=== PATIENT | female | born 1990 | race Caucasian/White ===

== ENCOUNTER 2018-06-25 09:20 | Inpatient (IN) | payer OTHER ==
[2018-06-25] MEDS ORDERED: CITRIC ACID/SODIUM CITRATE 30 ML UNIT-DOSE CUP PO ONE (09:45)
[2018-06-25] MEDS ORDERED: ELECTROLYTE-148 SOLN 1,000 ML IV SCH ×2 (09:45→10:45)
[2018-06-25 10:33] LABS: BASO % 0.2 % (0-2.0); EOS % 0.6 % (0-4.5); HEMATOCRIT 32.9 % (32.4-45.2); HEMOGLOBIN 11.8 GM/dL (10.7-15.3); LYMPH % 19.2 % (8-40); MCH 32.6 pg (25.7-33.7); MEAN CELL VOLUME 90.6 fl (80-96); MEAN PLT VOLUME 8.8 fl (7.5-11.1); PLATELET COUNT 208 K/MM3 (134-434); RBC 3.63 M/mm3 (3.60-5.2)
[2018-06-25 10:41] VITALS: BMI 22.9
[2018-06-25 10:47] LABS: INR 0.96 (0.83-1.09); PROTHROMBIN TIME (PATIENT) 11.3 SEC (9.7-13.0)
[2018-06-25 10:50] LABS: ACTIVATED PTT 26.4 SECONDS (25.2-36.5)
[2018-06-25 11:01] LABS: ANION GAP 8 MMOL/L (8-16); BLOOD UREA NITROGEN 3 mg/dL (7-18); CALCIUM 8.4 mg/dL (8.5-10.1); CHLORIDE 107 mmol/L (98-107); CO2 21 mmol/L (21-32); CREATININE 0.4 mg/dL (0.55-1.3); GLUCOSE,RANDOM 78 mg/dL (74-106); POTASSIUM 3.8 mmol/L (3.5-5.1); SODIUM 137 mmol/L (136-145)
[2018-06-25] MEDS ORDERED: morphine SULFATE/Preservative Free 0.5 MG/ML (1cc Syringe) ONE (11:18)
[2018-06-25] MEDS ORDERED: ceFAZolin SODIUM 1 GM VIAL ONE (11:18)
[2018-06-25] MEDS ORDERED: OXYTOCIN 20 UNITS in 0.9% NS 20 UNIT/1,000 ML INFUS.BAG IV ONE ×2 (11:25→11:26)
--- NOTE | 2018-06-25 11:37 | HP ---
Past Medical History - Primary Care Physician PCP:: Macrina Bardales - Admission Chief Complaint: 28 Yrs , 36.6 weeks by dates & 36.4 weeks by sono admitted for delivery due to IUGR & oligohydrambios , previous Myomectomy as per recommendations by MFM Dr Gomez. 06/25/2018 us 36.6 weeks,vx, post placenta, lalitha 5.7, EFW <3%tile (4'13"),umblical artery dopplers upper limit of normal, MCA Dopplers suggestive of brain sparing History of Present Illness: pt registered at 29 weeks gestation, . came from [facility] to [facility]. panel O Neg, Rpr nr, Hbsag neg, Rubella immune , Sickle neg , BV neg , ct/gc neg , CF screen neg , Quantiferon neg, Hiv neg Repeat 36weeks tests: h/h -11.4/34.1 plt 210, Gbs neg, gc/ct neg, hiv neg wt gain 43 lbs ante sunitha RHOGAM was given on 05/09/18 in the clinic History Source: Patient, Medical Record Limitations to Obtaining History: No Limitations - Past Medical History [employer]: No: CVA, Seizure Cardiovascular: No: HTN, Murmur Pulmonary: No: Asthma Gastrointestinal: No: Constipation Hepatobiliary: No: Hepatitis B, Hepatitis C Renal/: No: UTI Reproductive: Yes: Fibroids (myomectomy done) ...: 1 ...Para: 0 ...Term: 0 ...: 0 ...Spon : 0 ...Induced : 0 ...Multiple Gestation: 0 ...LMP: 10/10/17 ... Weeks Gestation by Dates: 36.6 ...EDC by Dates: 07/17/18 ...EDC by Sono: 07/19/18 (36.4 weeks by sono ) Heme/Onc: No: Sickle Cell Trait Infectious Disease: No: AIDS, STD's, Tuberculosis Psych: No: Addictions, Anxiety, Bipolar, Depression, Panic, Psychosis, Schizophrenia, Other - Past Surgical History Hx Myomectomy: Yes (06/14/2015 in [facility] & Laproscopy also was done ) Hx Transabdominal Cerclage: No - Smoking History Smoking history: Current every day smoker (5-6/cigrettes daily) Have you smoked in the past 12 months: No - Alcohol/Substance Use Hx Alcohol Use: No History of Substance Use: reports: None Home Medications - Allergies Allergies/Adverse Reactions: Allergies Allergy/AdvReac Type Severity Reaction Status Date / Time No Known Allergies Allergy Verified 06/25/18 09:57 - Home Medications Home Medications: Ambulatory Orders Pnv No.95/Ferrous Fum/Folic AC [ Vitamin Tablet] 1 each PO DAILY Physical Exam - Maternity Vital Signs: Vital Signs Temperature 98.0 F 06/25/18 10:00 Pulse Rate 78 06/25/18 10:00 Respiratory Rate 18 06/25/18 10:00 Blood Pressure 126/71 06/25/18 10:00 O2 Sat by Pulse Oximetry (%) Selected Entries 06/25/18 10:00 Weight 138 lb Constitutional: Yes: Well Nourished Eyes: Yes: WNL HENT: Yes: WNL, Normocephalic Neck: Yes: WNL Cardiovascular: Yes: WNL, Regular Rate and Rhythm Lungs: Clear to auscultation Breast(s): Yes: WNL. No: Mass, Other - Abdominal Exam/OB Fundal Height: 34 Number of Fetuses: Single Presentation: Vertex Contractions: No Heart Rate (range): 125 Heart Rate Location: [facility] Category: I Accelerations: Uniform Decelerations: None - Vaginal Exam/OB Vaginal Bleediing: No Speculum Exam: No Dilatation (cm): close Effacement (%): unefface Amniotic Membrane Status: Intact Presentation: Vertex/Position Station: -4 - Physical Exam Musculoskeletal: Yes: WNL Extremities: Yes: WNL. No: Calf Tenderness Edema: No Integumentary: Yes: Incision (previous pfannensteil scar) Deep Tendon Reflex Grade: Normal +2 ...Motor Strength: WNL Psychiatric: Yes: WNL, Alert, Oriented - Labs Lab Results: CBC, BMP 06/25/18 10:15 06/25/18 10:15 Laboratory Tests 06/25/18 06/25/18 10:15 10:15 PT with INR 11.30 INR 0.96 PTT (Actin FS) 26.4 RPR Titer Nonreactive Laboratory Tests 06/25/18 10:15 Blood Type O NEGATIVE Antibody Screen Pending Hemorrhage Risk Assessment - Risk Factors Medium Risk Factors: Yes: Prior , uterine surgery,or multiple laparotomies (h/o previous myomectomy ) Risk Score: 1 Risk Level: Medium Risk Problem List - Problems (1) with 36 completed weeks gestation Code(s): Z3A.36 - 36 WEEKS GESTATION OF (2) IUGR (intrauterine growth restriction) affecting care of mother Code(s): O36.5990 - MATERN CARE FOR OTH OR SUSP POOR FETL GRTH, UNSP TRI, UNSP Qualifiers: Fetus number: single or unspecified fetus Trimester: third trimester Qualified Code(s): O36.5930 - Maternal care for other known or suspected poor growth, third trimester, not applicable or unspecified (3) with history of uterine myomectomy Code(s): O34.29 - MATERNAL CARE DUE TO UTERINE SCAR FROM OTH PREVIOUS SURGERY (4) Oligohydramnios in ku in third trimester Code(s): O41.03X0 - OLIGOHYDRAMNIOS, THIRD TRIMESTER, NOT APPLICABLE OR UNSP Assessment/Plan 28 yrs 36.6 weeks by dates, 36.4 weeks by sono, IUGR < 3%tile , , Oligohydramnios, GBS neg .O neg s/p AP rhogam Plan : Delivery by primary c/section
[2018-06-25] MEDS ORDERED: PROPOFOL 20 ML ONE (12:45)
[2018-06-25] MEDS ORDERED: PROMETHAZINE HCL 25 MG/1 ML VIAL ONE (12:46)
[2018-06-25 13:00] LABS: ARTERIAL BLD GAS O2 SATURATION 15.2 % (90-98.9); ARTERIAL BLOOD GAS BASE EXCESS 0.6 meq/l (-2-2); ARTERIAL BLOOD GAS PCO2 56.5 mmHg (35-45); ARTERIAL BLOOD GAS PO2 11.3 mmHg (80-100); ARTERIAL BLOOD GAS pH 7.32 (7.35-7.45)
[2018-06-25] MEDS ORDERED: METHYLERGONOVINE MALEATE 0.2 MG/1 ML AMP IM PRN (13:22)
[2018-06-25] MEDS ORDERED: ONDANSETRON 4 MG/2 ML VIAL IVPUSH PRN (13:26)
[2018-06-25] MEDS ORDERED: morphine SULFATE/Preservative Free 0.5 MG/ML (1cc Syringe) SPIN ONE (13:26)
[2018-06-25] MEDS ORDERED: OXYTOCIN 20 UNITS in 0.9% NS 20 UNIT/1,000 ML INFUS.BAG IV SCH (13:30)
--- NOTE | 2018-06-25 13:46 | PN ---
Delivery - Delivery Section: Primary, Low Flap Transverse (Indication : 36.4 wks,IUGR, Oligohydramnios,h/o Myomectomy) Type of Anesthesia: Spinal EBL (cc): 500 (400 ml christos color ) Delivery, Single - Stages of Labor Date of Delivery: 06/25/18 Time of Delivery: 12:22 Time Placenta Delivered: 12:24 Placenta: Yes: Manual Removal, Uterine Exploration - Condition of Manager Local/Telemarketing Representative Present: Yes Name: Drake Dyer Gender: Female Weight: 4 lb 6 oz Position: Right, OT Total Hours ROM (Hrs/Mins): 2 min - 1 Minute Total Score: 9 5 Minutes Total Score: 9 - [place] Feeding Plan Initial Plan: Elected not to breastfeed exclusively throughout hospitalization Remarks - Remarks Remarks: 28 yrs , 36.6 wks by dates, 36.4 wks by sono recommended by [facility] delivery due to IUGR< 3%tile growth, oligohydramnios, h/o myomectomy. pt not in labor GBS neg, O neg, Rhogam given Intrapartum course uneventful
--- NOTE | 2018-06-25 13:58 | OP ---
Operative Note - Note: Operative Date: 06/25/18 Pre-Operative Diagnosis: 36.4 weeks , IUGR, Oligohydranios, h/o myomectomy Operation: Primary LFTC/Section Findings: 12.22 Pm baby girl , 9/9, wt 4'6', ROT position Both tubes & ovaries normal Dr Dyer Cyber Legal Advisor present in the OR Surgeon: Macrina Bardales Ventilation Worker: Bola Banegas Anesthesiologist/ROBOTICS TECHNOLOGIST: Adolfo Tracey Anesthesia: Spinal Specimens Removed: cord segment for cord blood gas. cord blood. placenta Estimated Blood Loss (mls): 500 Drains, Volume Out (mls): 400 (sutton , christos color ) Fluid Volume Replaced (mls): 2,000 (iv ancef 1 gm ivpb given ) Operative Report Dictated: Yes
--- NOTE | 2018-06-25 14:06 | OP ---
DATE OF OPERATION: 06/25/2018 PREOPERATIVE DIAGNOSES: A 36.4 weeks by sonogram, 36.6 weeks by dates, intrauterine growth restriction, oligohydramnios, and history of myomectomy. OPERATION DONE: Primary low flap transverse section. SURGEON: Macrina Bardales MD COATER SLATE: ROB Lowe ANESTHESIOLOGIST: Dr. Tracey ANESTHESIA: Spinal. FINDINGS: This is a 28-year-old 1, para 0, had a sonogram done today and [facility] recommends delivery due to the IUGR less than 3 percentile, and a SAHIL of 5, vertex presentation, patient was not in labor, and she has h/o myomectomy in 2014, cervix was closed. PROCEDURE: Patient was taken to the operating room table, and abdomen was shaved, prepped. Spinal anesthesia was given. Eric catheter was inserted. Abdomen was painted with ChloraPrep and draped in usual manner. Pfannenstiel incision was made through previous scar, skin and subcutaneous tissue, scar tissue. Anterior rectus sheath was incised transversely. Bleeding points were clamped and cauterized. The rectus muscle was from the rectus sheath. Parietal peritoneum was opened vertically. The lower flap by the peritoneum was incised transversely. Lower uterine segment was incised transversely. Amniotic fluid was minimal, and it was clear. Baby was delivered at 12:22 p.m. from the ROT position. Baby girl. Cord was clamped. Cord blood was collected, and also the cord segment was sent for cord blood gases. Dr. Dyer the sports anchor was present in the room. Baby's Apgars were 9/9, and the weight is 4 pounds 6 ounces. The placenta was removed completely with the membranes, and the closure of the uterine incision was done. The uterine incision was closed in 2 layers. First layer was a continuous locking with Biosyn 0 suture. Second layer was a continuous intermittently locking with Biosyn 0 suture. Hemostasis was verified. Then the bladder peritoneum was also closed with Biosyn 0 suture. Both tubes and ovaries were normal. Tubes and ovaries were normal. There were some flimsy adhesions on the left side. Irrigation was done. Then the closure of the abdomen was done. Sponge, instrument, and needle count was correct. Parietal peritoneum was closed with Vicryl 0 suture. Muscles were approximated together with Vicryl 0 interrupted suture were taken. Anterior rectus sheath was closed with a Vicryl 0 continuous sutures were taken. Skin was mobilized from underneath scar. Subcutaneous tissue was approximated with interrupted Vicryl 0 sutures, and the skin was approximated with ani. Patient tolerated the procedure well. She was transferred to the recovery room in stable condition. Estimated blood loss was 500 mL, and she received IV Ancef 1 g prior to the incision, and urine output was 400 mL christos colored. Omid [id number] MTDD
[2018-06-25] MEDS: CEFAZOLIN 1 GM/D5W 1 GM/50 ML BAG IVPB SCH (18:03)
[2018-06-25] MEDS: IBUPROFEN 800 MG/8 ML IJ IVPB PRN (21:15)
[2018-06-26] MEDS: CEFAZOLIN 1 GM/D5W 1 GM/50 ML BAG IVPB SCH ×2 (01:53→09:21)
[2018-06-26] MEDS: IBUPROFEN 800 MG/8 ML IJ IVPB PRN (06:23)
[2018-06-26] MEDS ORDERED: HYDROmorphone HCl 2 MG/ML VIAL IVPB PRN (08:34)
--- NOTE | 2018-06-26 08:34 | PN ---
Progress Note (short form) - Note Progress Note: Post op day#1.S/P C Section under spinal anesthesia with duramorph uneventful.Patient stable and c/o pain score of 7-8/10.So will put patient on Dilaudid prn.No any anesthesia related problem.Patient DC from the anesthesia care.
[2018-06-26] MEDS: IBUPROFEN 600 MG TABLET (FP) PO PRN ×4 (08:36→20:11)
[2018-06-26] MEDS: oxyCODONE HCL 5 MG TABLET PO PRN ×4 (08:37→20:10)
[2018-06-26] MEDS: SIMETHICONE 80 MG TAB.CHEW (FP) PO PRN ×4 (08:38→20:10)
[2018-06-26 08:48] LABS: BASO % 0.2 % (0-2.0); EOS % 0.3 % (0-4.5); HEMATOCRIT 29.5 % (32.4-45.2); HEMOGLOBIN 9.5 GM/dL (10.7-15.3); LYMPH % 16.8 % (8-40); MCH 30.3 pg (25.7-33.7); MCHC 32.2 g/dl (32.0-36.0); MEAN PLT VOLUME 8.9 fl (7.5-11.1); MONO % 5.1 % (3.8-10.2); NEUT % 77.6 % (42.8-82.8); PLATELET COUNT 167 K/MM3 (134-434); RBC 3.13 M/mm3 (3.60-5.2); RDW 13.1 % (11.6-15.6); WHITE BLOOD COUNT 15.8 K/mm3 (4.0-10.0)
--- NOTE | 2018-06-26 09:08 | PN ---
Progress Note (short form) - Note Progress Note: pod 1 s/p c/s , has mild low abdominal cramps CBC, BMP 06/25/18 10:15 Last Vital Signs Temp Pulse Resp BP Pulse Ox 98.2 F 74 20 112/63 99 06/26/18 06:00 06/26/18 06:00 06/26/18 06:00 06/26/18 06:00 06/25/18 14:40 abdomen soft, no distension, BS present incision dry, claen plan ambulate, advance diet pain management cbc
[2018-06-26] MEDS: ENOXAPARIN NA (PORCINE) 40 MG/0.4 ML DISP.SYRIN SQ SCH (09:21)
[2018-06-26] MEDS: PRENATAL VITAMINS W/ FOLIC ACID TABLET (FP) PO SCH (09:22)
[2018-06-26] MEDS ORDERED: FLU VACCINE QUAD 60 MCG/0.5 ML (MDV 18-19) IM ONE (10:00)
[2018-06-26] MEDS ORDERED: DIPHTH,PERTUSS(ACELL),TET 0.5 ML DISP.SYRIN IM ONE (10:00)
[2018-06-26] MEDS ORDERED: BISACODYL 10 MG SUPP.RECT RC PRN (13:22)
[2018-06-26] MEDS: SENNOSIDES/DOCUSATE COMBO (SENNA PLUS) TABLET (UD) PO PRN (20:10)
[2018-06-26] MEDS: FERROUS SO4 325 MG TABLET (FP) PO SCH (21:48)
[2018-06-27] MEDS: oxyCODONE HCL 5 MG TABLET PO PRN ×4 (02:04→21:29)
[2018-06-27] MEDS: IBUPROFEN 600 MG TABLET (FP) PO PRN ×4 (02:05→21:29)
[2018-06-27] MEDS: PRENATAL VITAMINS W/ FOLIC ACID TABLET (FP) PO SCH (09:10)
[2018-06-27] MEDS: SIMETHICONE 80 MG TAB.CHEW (FP) PO PRN (09:10)
[2018-06-27] MEDS: FERROUS SO4 325 MG TABLET (FP) PO SCH ×2 (09:11→21:29)
[2018-06-27] MEDS: ENOXAPARIN NA (PORCINE) 40 MG/0.4 ML DISP.SYRIN SQ SCH (09:16)
--- NOTE | 2018-06-27 11:50 | PN ---
Post Progress Note Type of Delivery: Primary C/S Vital Signs: Vital Signs Temperature 98.4 F 06/26/18 22:00 Pulse Rate 88 06/26/18 22:00 Respiratory Rate 18 06/26/18 22:00 Blood Pressure 122/67 06/26/18 22:00 O2 Sat by Pulse Oximetry (%) 99 06/25/18 14:40 Uterus: Yes: Fundus Firm Incision: Yes: Dressing dry and intact Abdomen/GI: Yes: Abdomen soft Lochia: Yes: Rubra Lochia, amount: Small Extremities: Yes: Calves non-tender Activity: Ambulating - Labs Labs: CBC WBC 15.8 K/mm3 (4.0-10.0) H 06/26/18 06:45 RBC 3.13 M/mm3 (3.60-5.2) L 06/26/18 06:45 Hgb 9.5 GM/dL (10.7-15.3) L 06/26/18 06:45 Hct 29.5 % (32.4-45.2) L 06/26/18 06:45 MCV 94.0 fl (80-96) 06/26/18 06:45 MCH 30.3 pg (25.7-33.7) 06/26/18 06:45 MCHC 32.2 g/dl (32.0-36.0) 06/26/18 06:45 RDW 13.1 % (11.6-15.6) 06/26/18 06:45 Plt Count 167 K/MM3 (134-434) 06/26/18 06:45 MPV 8.9 fl (7.5-11.1) 06/26/18 06:45 Absolute Neuts (auto) 12.3 K/mm3 (1.5-8.0) H 06/26/18 06:45 Neutrophils % 77.6 % (42.8-82.8) 06/26/18 06:45 Lymphocytes % 16.8 % (8-40) 06/26/18 06:45 Monocytes % 5.1 % (3.8-10.2) 06/26/18 06:45 Eosinophils % 0.3 % (0-4.5) 06/26/18 06:45 Basophils % 0.2 % (0-2.0) 12/21/18 06:45 Nucleated RBC % 0 % (0-0) 06/26/18 06:45 Assessment/Plan 28yo s/p PLTCS, POD#2 Routine PP care OOB, ambulate Labs reviewed D/c to home by POD#4 Sharon Gonzales MD
[2018-06-27] MEDS: ACETAMINOPHEN 325 MG TABLET (FP) PO PRN (21:29)
[2018-06-28] MEDS: ACETAMINOPHEN 325 MG TABLET (FP) PO PRN ×2 (02:00→21:35)
[2018-06-28] MEDS: oxyCODONE HCL 5 MG TABLET PO PRN ×4 (02:02→21:35)
[2018-06-28] MEDS: IBUPROFEN 600 MG TABLET (FP) PO PRN ×3 (02:05→17:13)
[2018-06-28] MEDS: SENNOSIDES/DOCUSATE COMBO (SENNA PLUS) TABLET (UD) PO PRN (02:10)
[2018-06-28] MEDS: SIMETHICONE 80 MG TAB.CHEW (FP) PO PRN ×4 (02:14→21:35)
[2018-06-28 07:18] LABS: BASO % 0.6 % (0-2.0); EOS % 1.3 % (0-4.5); HEMATOCRIT 28.1 % (32.4-45.2); HEMOGLOBIN 9.6 GM/dL (10.7-15.3); LYMPH % 20.2 % (8-40); MCH 31.6 pg (25.7-33.7); MCHC 34.2 g/dl (32.0-36.0); MEAN CELL VOLUME 92.5 fl (80-96); MEAN PLT VOLUME 7.8 fl (7.5-11.1); MONO % 9.4 % (3.8-10.2); NEUT % 68.5 % (42.8-82.8); PLATELET COUNT 185 K/MM3 (134-434); RBC 3.04 M/mm3 (3.60-5.2); RDW 12.7 % (11.6-15.6); WHITE BLOOD COUNT 6.5 K/mm3 (4.0-10.0)
[2018-06-28] MEDS: ENOXAPARIN NA (PORCINE) 40 MG/0.4 ML DISP.SYRIN SQ SCH (10:41)
[2018-06-28] MEDS: PRENATAL VITAMINS W/ FOLIC ACID TABLET (FP) PO SCH (10:41)
[2018-06-28] MEDS: FERROUS SO4 325 MG TABLET (FP) PO SCH ×2 (10:41→21:35)
--- NOTE | 2018-06-28 11:59 | PN ---
Post Progress Note Type of Delivery: Primary C/S Vital Signs: Vital Signs Temperature 98.2 F 06/28/18 02:00 Pulse Rate 78 06/28/18 02:00 Respiratory Rate 20 06/28/18 02:00 Blood Pressure 135/65 06/28/18 02:00 O2 Sat by Pulse Oximetry (%) 99 06/25/18 14:40 Breast Exam: Yes: Soft Uterus: Yes: Fundus below umbilicus Incision: Yes: Dressing dry and intact Abdomen/GI: Yes: Abdomen soft Lochia: Yes: Rubra Lochia, amount: Small Extremities: Yes: Calves non-tender Activity: Ambulating - Labs Labs: CBC WBC 6.5 K/mm3 (4.0-10.0) 06/28/18 07:04 RBC 3.04 M/mm3 (3.60-5.2) L 06/28/18 07:04 Hgb 9.6 GM/dL (10.7-15.3) L 06/28/18 07:04 Hct 28.1 % (32.4-45.2) L 06/28/18 07:04 MCV 92.5 fl (80-96) 06/28/18 07:04 MCH 31.6 pg (25.7-33.7) 06/28/18 07:04 MCHC 34.2 g/dl (32.0-36.0) 06/28/18 07:04 RDW 12.7 % (11.6-15.6) 06/28/18 07:04 Plt Count 185 K/MM3 (134-434) 06/28/18 07:04 MPV 7.8 fl (7.5-11.1) D 06/28/18 07:04 Absolute Neuts (auto) 4.4 K/mm3 (1.5-8.0) 06/28/18 07:04 Neutrophils % 68.5 % (42.8-82.8) 06/28/18 07:04 Lymphocytes % 20.2 % (8-40) D 06/28/18 07:04 Monocytes % 9.4 % (3.8-10.2) D 06/28/18 07:04 Eosinophils % 1.3 % (0-4.5) D 06/28/18 07:04 Basophils % 0.6 % (0-2.0) 06/28/18 07:04 Nucleated RBC % 0 % (0-0) 06/28/18 07:04 Assessment/Plan 28yo s/p PLTCS, POD#3 Routine PP care OOB, ambulate Labs reviewed D/c to home by POD#4 Sharon Gonzales MD
--- NOTE | 2018-06-29 07:33 | DS ---
Physical Examination Vital Signs: Vital Signs Temperature 98.3 F 06/28/18 21:00 Pulse Rate 85 06/28/18 21:00 Respiratory Rate 20 06/28/18 21:00 Blood Pressure 128/77 06/28/18 21:00 O2 Sat by Pulse Oximetry (%) 99 06/25/18 14:40 Constitutional: Yes: Well Nourished, No Distress, Calm Respiratory: Yes: WNL, Regular, CTA Bilaterally Gastrointestinal: Yes: WNL, Normal Bowel Sounds Edema: No Integumentary: Yes: WNL Wound/Incision: No: Clean/Dry, Well Approximated, Sutures Intact, [place] Intact , Steri Strips, Open to air, Dressing Dry and Intact, Dressing Removed, Ani Removed, Sutures Removed, Draining, Reddened, Bleeding, Excoriated, Unapproximated, Other Labs: CBC, BMP 06/28/18 07:04 06/25/18 10:15 Discharge Summary Reason For Visit: Current Active Problems Delivery by emergency section (Acute) IUGR (intrauterine growth restriction) affecting care of mother (Acute) Oligohydramnios in ku in third trimester (Acute) with 36 completed weeks gestation (Acute) with history of uterine myomectomy (Acute) Hospital Course: Patient presented for [facility] given history of concerning testing, history of myomectomy Her procedure was uncomplicated She met all postoperative milestones She was discharged home on POD#4 in stable condition Condition: Stable - Instructions Diet, Activity, Other Instructions: Post Instructions DIET: Continue good diet high in protein, calcium, and iron rich foods. Drink at least eight (8) glasses of water daily in addition to other fluids. ___ Regular diet MEDICATIONS: Continue vitamins and iron as previously directed. Motrin and Tylenol may be taken for minor discomfort. ACTIVITY: Mild to moderate exercise may be started in two (2) weeks. Take frequent rest periods. Resume normal activity after six (6) week check up. WOUND CARE OF OPERATIVE SITE: Continue use of perineal bottle until vaginal discharge stops. Keep area clean. Shower daily. Keep abdominal wound dry. Report any drainage or redness to physician. Tub baths, tampons and douches are not permitted for [address] Breast feeding & or Bottle feeding BREAST CARE: (For those that are not ): If engorgement occurs: Wear tight fitting bra. Take Tylenol or Motrin for pain. Apply cold packs (ice in bags to each breast ) FAMILY PLANNING: There are many control alternatives to pursue and they should be discussed at your first office visit. You may resume sexual activity after your six (6) week check up. (Remember, is not a contraceptive) NEXT PHYSICIAN APPOINTMENT: Be certain to call for a one (1 week ) appointment, unless otherwise directed. wound check Call Clinic or got to Emergency Dept if you have any of the following: Heavy vaginal bleeding Painful urination Leg pain Unusual odor noted to vaginal bleeding High fever Red streaking noted on breast Referrals: Macrina Bardales MD [Staff Physician] - Disposition: HOME - Home Medications Comprehensive Discharge Medication List: Ambulatory Orders Pnv No.95/Ferrous Fum/Folic AC [ Vitamin Tablet] 1 each PO DAILY Acetaminophen [Tylenol .Regular Strength -] 500 mg PO Q4H PRN #30 tablet Ferrous Sulfate [Feosol] 325 mg PO BID #90 tab 06/27/18 Ibuprofen [Motrin -] 600 mg PO Q4H PRN #30 tablet 06/27/18 Vitamins (Sjr) - 1 tab PO DAILY #30 tablet 06/27/18
[2018-06-29 08:51] VITALS: BP 127/77; PULSE 94; TEMP 98.9
[2018-06-29] MEDS: FERROUS SO4 325 MG TABLET (FP) PO SCH (09:25)
[2018-06-29] MEDS: SIMETHICONE 80 MG TAB.CHEW (FP) PO PRN (09:25)
[2018-06-29] MEDS: ENOXAPARIN NA (PORCINE) 40 MG/0.4 ML DISP.SYRIN SQ SCH (09:25)
[2018-06-29] MEDS: IBUPROFEN 600 MG TABLET (FP) PO PRN (09:25)
[2018-06-29] MEDS: PRENATAL VITAMINS W/ FOLIC ACID TABLET (FP) PO SCH (09:25)
[2018-06-29] MEDS: ACETAMINOPHEN 325 MG TABLET (FP) PO PRN (09:27)
[2018-07-01 15:03] LABS: VENOUS PC02 44.1 mmHg (38-52); VENOUS PH 7.38 (7.32-7.42)
[2018-07-01 15:04] LABS: VENOUS PO2 23.1 mmHg (28-48)
--- NOTE | 2018-07-01 18:36 | PATH ---
Surgical Pathology Report Patient Name: SVETA MACIAS [facility]. Rec. 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 Specimen(s) Received PLACENTA Clinical History , 36.6 weeks gestation, oligohydramnios SGA, poor Doppler studies, previous myomectomy Final Diagnosis PLACENTA: THIRD TRIMESTER PLACENTA. TRIVASCULAR CORD. MEMBRANES WITH NO DIAGNOSTIC ABNORMALITIES. Electronically Signed Faustino Meza M.D. Gross Description The specimen is received fresh labeled placenta and is a 418 gram, 19.0 x 14.5 x 2.3 cm. placenta with attached membranes and umbilical cord. The attached membranes are sanchez, translucent with focal opacities and insert marginally. The umbilical cord measures 7 cm. in length and averages 0.8 cm. in diameter. The cord inserts eccentrically, 2 cm. to the nearest margin. No true knots or strictures are identified. Cut surface of the umbilical cord reveals 3 vessels. The surface is connor-blue with minimal fibrin deposition and appropriate caliber vessels. The maternal surface is red-brown with focal defects. Sectioning reveals red-brown, spongy parenchyma. No lesions are identified. Internist Medical Doctor Md sections are submitted in three cassettes as follows: 1- membrane rolls and umbilical cord; 2-3- full thickness sections of placenta. 06/26/2018 [facility]06/26/2018
== END 2018-06-29 11:40 | disposition home or self-care (01) | DRG 540 ==
LOC: JDEL 09:20 → JLDR 09:45 → J3W 15:20
PROVIDERS: ADMIT Obstetrics & Gynecology; ATTEND Obstetrics & Gynecology
PROC: 10D00Z1 Extraction of Products of Conception, Low, Open Approach (ICD-10-PCS; principal; 2018-06-25)
PROC: 3E0334Z Introduction of Serum, Toxoid and Vaccine into Peripheral Vein, Percutaneous Approach (ICD-10-PCS; 2018-06-26)
DX: O60.14X0 Preterm labor third trimester with preterm delivery third trimester, not applicable or unspecified (principal); O36.5930 Maternal care for other known or suspected poor fetal growth, third trimester, not applicable or unspecified; O41.03X0 Oligohydramnios, third trimester, not applicable or unspecified; Z3A.36 36 weeks gestation of pregnancy; Z29.13 Encounter for prophylactic Rho(D) immune globulin; Z37.0 Single live birth
CPT/HCPCS: 36415; 36600; 80048; 82803; 85025; 85461; 85610; 85730; 86593; 86850; 86870; 86900; 86901; 86902; 86999; 88307-TC; 90686; 90715; G0008

== ENCOUNTER 2018-07-01 00:41 | Emergency (ER) | payer OTHER ==
[2018-07-01 02:06] VITALS: BP 120/66; PULSE 53; TEMP 97.9; BMI 22.9
--- NOTE | 2018-07-01 02:15 | PDOC ---
History of Present Illness - General Chief Complaint: Nausea/Vomiting Stated Complaint: VOMITING Time Seen by Provider: 07/01/18 01:57 - History of Present Illness Initial Comments: 07/01/18 04:57 Patient is a 28-year-old female status post 1 week ago, who presents to the emergency department for nausea vomiting abdominal pain and hemoptysis. Patient states that she saw streaks of pink blood after vomiting today. She states that she's been vomiting for one day and has lower abdominal pain. Denies fevers, chills, back pain, diarrhea, constipation, urinary symptoms, vaginal bleeding. She states she's been taking Tylenol and Motrin at home with little relief of her symptoms. Past History - Travel Traveled outside of the country in the last 30 days: No Close contact w/someone who was outside of country & ill: No - Past Medical History Allergies/Adverse Reactions: Allergies Allergy/AdvReac Type Severity Reaction Status Date / Time No Known Allergies Allergy Verified 07/01/18 02:05 Home Medications: Ambulatory Orders Pnv No.95/Ferrous Fum/Folic AC [ Vitamin Tablet] 1 each PO DAILY Acetaminophen [Tylenol .Regular Strength -] 500 mg PO Q4H PRN #30 tablet Ferrous Sulfate [Feosol] 325 mg PO BID #90 tab 06/27/18 Ibuprofen [Motrin -] 600 mg PO Q4H PRN #30 tablet 06/27/18 Vitamins (Sjr) - 1 tab PO DAILY #30 tablet 06/27/18 Cephalexin Monohydrate [Keflex -] 500 mg PO BID #14 capsule 07/01/18 Ondansetron [Zofran Odt -] 4 mg SL TID #10 od.tablet 07/01/18 Phenazopyridine HCl [Pyridium -] 100 mg PO TID #10 tablet 07/01/18 Asthma: No Cancer: No Cardiac Disorders: No Diabetes: No HTN: No Seizures: No Thyroid Disease: No - Suicide/Smoking/Psychosocial Hx Smoking History: Never smoked Have you smoked in the past 12 months: No Information on smoking cessation initiated: No Hx Alcohol Use: No Drug/Substance Use Hx: No Hx Substance Use Treatment: No Review of Systems - Review of Systems Able to Perform ROS?: Yes Comments:: 07/01/18 04:57 CONSTITUTIONAL: Absent: fever, chills, diaphoresis, generalized weakness, malaise, loss of appetite HEENT: Absent: rhinorrhea, nasal congestion, throat pain, throat swelling, difficulty swallowing, mouth swelling, ear pain, eye pain, visual Changes CARDIOVASCULAR: Absent: chest pain, loss of consciousness, palpitations, irregular heart rate, peripheral edema RESPIRATORY: Absent: cough, shortness of breath, dyspnea with exertion, orthopnea, wheezing, stridor, hemoptysis GASTROINTESTINAL: Present: abdominal pain, nausea, vomiting, hemoptysis Absent: abdominal distension, diarrhea, constipation, melena, hematochezia GENITOURINARY: Absent: dysuria, frequency, urgency, hesitancy, hematuria, flank pain, genital pain MUSCULOSKELETAL: Absent: myalgia, arthralgia, joint swelling SKIN: Absent: rash, itching, pallor HEMATOLOGIC/IMMUNOLOGIC: Absent: easy bleeding, easy bruising, lymphadenopathy, frequent infections ENDOCRINE: Absent: unexplained weight gain, unexplained weight loss, heat intolerance, cold intolerance NEUROLOGIC: Absent: headache, focal weakness or paresthesias, dizziness, unsteady gait, seizure, mental status changes, bladder or bowel incontinence PSYCHIATRIC: Absent: anxiety, depression, suicidal or homicidal ideation, hallucinations. Is the patient limited Georgian proficient: No *Physical Exam - Vital Signs Last Vital Signs Temp Pulse Resp BP Pulse Ox 97.9 F 53 L 15 120/66 99 07/01/18 00:41 07/01/18 00:41 07/01/18 00:41 07/01/18 00:41 07/01/18 00:41 - Physical Exam Comments: 07/01/18 04:58 GENERAL: Well developed, well nourished. Awake and alert. No acute distress. HEENT: Normocephalic, atraumatic. PERRLA, EOMI. No conjunctival pallor. Sclera are non- icteric. Moist mucous membranes. Oropharynx is clear. NECK: Supple. Full ROM. No JVD. Carotid pulses 2+ and symmetric, without bruits. No thyromegaly. No lymphadenopathy. CARDIOVASCULAR: Regular rate and rhythm. No murmurs, rubs, or gallops. Distal pulses are 2+ and symmetric. PULMONARY: No evidence of respiratory distress. Lungs clear to auscultation bilaterally. No wheezing, rales or rhonchi. ABDOMINAL: TTP of the LLQ, RLQ, suprapubic area. Soft. Non-distended. No rebound or guarding. No organomegaly. Normoactive bowel sounds. MUSCULOSKELETAL Normal range of motion at all joints. No bony deformities or tenderness. No CVA tenderness. EXTREMITIES: No cyanosis. No clubbing. No edema. No calf tenderness. SKIN: scar is well healed with no evidence of cellulitis, or purulent drainage. Warm and dry. Normal capillary refill. No rashes. No jaundice. NEUROLOGICAL: Alert, awake, appropriate. Cranial nerves 2-12 intact. No deficits to light touch and temperature in face, upper extremities and lower extremities. No motor deficits in the in face, upper extremities and lower extremities. Normoreflexic in the upper and lower extremities. Normal speech. Toes are down- going bilaterally. Gait is normal without ataxia. PSYCHIATRIC: Cooperative. Good eye contact. Appropriate mood and affect. Moderate Sedation - Procedure Monitoring Vital Signs: Procedure Monitoring Vital Signs Temperature 97.9 F 07/01/18 00:41 Pulse Rate 53 L 07/01/18 00:41 Respiratory Rate 15 07/01/18 00:41 Blood Pressure 120/66 07/01/18 00:41 O2 Sat by Pulse Oximetry (%) 99 07/01/18 00:41 ED Treatment Course - LABORATORY CBC & Chemistry Diagram: 07/01/18 02:00 07/01/18 02:00 Medical Decision Making - Medical Decision Making 07/01/18 06:59 Patient is a 28-year-old female , one week status post , who presents to the emergency department today with 1 day of nausea, vomiting, lower abdominal pain and hemoptysis. On exam patient with left lower quadrant, right lower quadrant and suprapubic tenderness. Patient also states she had some brief hemoptysis today. scar appears intact with no infection. However given hemoptysis cannot rule out dehiscence internally, as patient had increased intrathoracic pressure while vomiting. Lab work and urine obtained. No leukocytosis. Electrolytes WNL. CT with contrast obtained. No internal bleeding noted. Uterus appears intact. No other acute pathology. Explained to patient that she cannot breast-feed after receiving a CT with contrast for 24 hours. Urine shows positive leukocytes and nitrite. We'll treat with Keflex. Given negative CT scan pain and vomiting most likely due to a UTI. We'll treat as an outpatient and have patient follow up with OB. Given patient placed on antibiotics also recommended not breast-feeding until antibiotics are finished. Patient understands the need to feed the baby with formula until she finishes her antibiotics. Hemoptysis most likely a small Cindy Matute tear. Patient did not vomit while in the emergency department. Tolerating by mouth. Discharge home. I discussed the physical exam findings, ancillary test results and final diagnoses with the patient. I answered all of the patient's questions. The patient was satisfied with the care received and felt comfortable with the discharge plan and treatment plan. The Patient agrees to follow up with the primary care physician/specialist within 24-72 hours. Return precautions were given. *DC/Admit/Observation/Transfer Diagnosis at time of Disposition: UTI (urinary tract infection) Qualifiers: Urinary tract infection type: acute cystitis Hematuria presence: with hematuria Qualified Code(s): N30.01 - Acute cystitis with hematuria - Discharge Dispostion Disposition: HOME Condition at time of disposition: Fair Decision to Admit order: No - Prescriptions Prescriptions: Cephalexin Monohydrate [Keflex -] 500 mg PO BID #14 capsule Ondansetron [Zofran Odt -] 4 mg SL TID #10 od.tablet Phenazopyridine HCl [Pyridium -] 100 mg PO TID #10 tablet - Referrals Referrals: Sharon Gonzales MD [Staff Physician] - Randolph Aragon MD [Staff Physician] - - Patient Instructions Printed Discharge Instructions: DI for Urinary Tract Infection (UTI) Additional Instructions: You have a urinary tract infection. This caused by bacteria. You CT scan was normal today. Please drink plenty of fluids. Take your antibiotics as prescribed. Finish the entire dose even if you feel better. Do not breast feed while on the antibiotics. You may pump your breast milk to prevent breast tenderness. Throw the milk away after pumping. You may take zofran every 8 hours as needed for vomiting/nausea. You may take pyridum as needed for pain. Take this medication with food. You may take Tylenol or Motrin as needed for pain Please follow up with your primary care doctor this week. Return to the emergency department if you have fevers, chills, nausea, vomiting , back pain, or have any changes in your symptoms. Camilla dior infeksion t traktit urinar. Kjo shkaktohet saeid bakteret. Ju CT scan ishte normale sot. Ju lutemi t pini cristy lngje. Merrini antibiotikt tuaj si t prshkruara. Mbaro t gjith dozn edhe nse ndihesh m otilia. Mos ushqeni gji ndrsa miko n antibiotik. Ju mund t pomponi qumshtin e gjirit pr t parandaluar ndjeshmrin e gjirit. Hidhni qumshtin larg pas pompimit. Ju mund t merrni zofran do 8 or sipas nevojs pr t vjella / przierje. Ju mund t merrni piridumin sipas nevojs pr dhimbje. Merreni kt anitra me ushqim. Ju mund t merrni Tylenol ose Motrin si t nevojshme pr dhimbje Ju lutemi t ndiqni me mjekun tuaj t kujdesit parsor kt stevie. Kthehuni n departamentin e urgjencs nse otis ethe, dridhura, nauze, vjellje, dhimbje prapa ose otis ndonj ndryshim n simptomat tuaja. - Post Discharge Activity
[2018-07-01] MEDS ORDERED: FAMOTIDINE 20 MG/50 ML IVPB 20 MG/50 ML MG IVPB ONE ×2 (02:16→02:23)
[2018-07-01] MEDS ORDERED: ACETAMINOPHEN 1000 MG/100 ML VIAL (NON FORMULARY) IVPB ONE (02:16)
[2018-07-01] MEDS ORDERED: ONDANSETRON 4 MG/2 ML VIAL IVPUSH ONE (02:16)
[2018-07-01] MEDS ORDERED: SODIUM CHLORIDE 1,000 ML IV STA (02:16)
--- NOTE | 2018-07-01 02:19 | PDOC ---
*Physical Exam - Vital Signs Last Vital Signs Temp Pulse Resp BP Pulse Ox 97.9 F 53 L 15 120/66 99 07/01/18 00:41 07/01/18 00:41 07/01/18 00:41 07/01/18 00:41 07/01/18 00:41 ED Treatment Course - LABORATORY CBC & Chemistry Diagram: 07/01/18 02:00 07/01/18 02:00 Medical Decision Making - Medical Decision Making 07/01/18 02:18 Pt seen by the Advanced Practice Provider under my direct supervision Ancillary studies reviewed I agree with plan as outlined by the Advanced Practice Provider ROB Harry *DC/Admit/Observation/Transfer Diagnosis at time of Disposition: UTI (urinary tract infection) - Discharge Dispostion Disposition: HOME Condition at time of disposition: Fair - Prescriptions Prescriptions: Cephalexin Monohydrate [Keflex -] 500 mg PO BID #14 capsule Ondansetron [Zofran Odt -] 4 mg SL TID #10 od.tablet Phenazopyridine HCl [Pyridium -] 100 mg PO TID #10 tablet - Referrals Referrals: Randolph Aragon MD [Staff Physician] - Sharon Gonzales MD [Staff Physician] - - Patient Instructions Printed Discharge Instructions: DI for Urinary Tract Infection (UTI) Additional Instructions: You have a urinary tract infection. This caused by bacteria. You CT scan was normal today. Please drink plenty of fluids. Take your antibiotics as prescribed. Finish the entire dose even if you feel better. Do not breast feed while on the antibiotics. You may pump your breast milk to prevent breast tenderness. Throw the milk away after pumping. You may take zofran every 8 hours as needed for vomiting/nausea. You may take pyridum as needed for pain. Take this medication with food. You may take Tylenol or Motrin as needed for pain Please follow up with your primary care doctor this week. Return to the emergency department if you have fevers, chills, nausea, vomiting , back pain, or have any changes in your symptoms. Camilla dior infeksion t traktit urinar. Peter canaleskaktohluis alberto breaux bakteret. Camilla CT scan ishte normale sot. Camilla lutemi t pini cristy lngje. Merrini antibiotikt lainey si t prshkrdesiree. Mbaro t gjith dozn edhe nse ndihesh m otilia. Mos ushqeni gji ndrsa miko n antibiotik. Camilla xavier pomponi qumshtin e gjirit pr t parandaluar ndjeshmrin e gjirit. Hidhni qumshtin larg pas pompimit. Camilla xavier merrni zofran do 8 or sipas nevojs pr t vjella / przierje. Camilla xavier merrni piridumin sipas nevojs pr dhimbje. Merreni kt anitra me ushqim. Camilla xavier merrni Tylenol ose Motrin si t nevojshme pr imbje Camilla lutemi t ndiqni me mjekun tuaj t kujdesit parsor kt stevie. Kthehuni n departamentin e urgjencs nse otis ethe, dridhura, nauze, vjellje, dhimbje prapa ose otis ndonj ndryshim n simptomat tuaja. - Post Discharge Activity
[2018-07-01] MEDS ORDERED: ACETAMINOPHEN INJECTION 100 ML IVPB ONE (02:22)
[2018-07-01] MEDS ORDERED: ONDANSETRON 4 MG/2 ML VIAL ONE (02:23)
[2018-07-01 03:03] LABS: BASO % 0.4 % (0-2.0); EOS % 1.1 % (0-4.5); HEMATOCRIT 31.1 % (32.4-45.2); HEMOGLOBIN 11.4 GM/dL (10.7-15.3); LYMPH % 21.7 % (8-40); MCH 33.1 pg (25.7-33.7); MCHC 36.6 g/dl (32.0-36.0); MEAN CELL VOLUME 90.4 fl (80-96); MEAN PLT VOLUME 8.3 fl (7.5-11.1); MONO % 9.7 % (3.8-10.2); NEUT % 67.1 % (42.8-82.8); PLATELET COUNT 298 K/MM3 (134-434); RBC 3.44 M/mm3 (3.60-5.2); RDW 12.5 % (11.6-15.6); WHITE BLOOD COUNT 9.4 K/mm3 (4.0-10.0)
[2018-07-01 03:31] LABS: URINE APPEARANCE CLOUDY; URINE BILIRUBIN NEGATIVE (<2.0 mg/dL); URINE COLOR BROWN; URINE GLUCOSE (UA) NEGATIVE (NEGATIVE); URINE KETONE NEGATIVE (NEGATIVE)
[2018-07-01 03:32] LABS: URINE LEUK ESTERASE 2+ (NEGATIVE); URINE NITRITE POSITIVE (NEGATIVE); URINE PROTEIN 1+ (NEGATIVE); URINE UROBILINOGEN NORMAL mg/dL (0.2-1.0)
[2018-07-01 03:34] LABS: ALBUMIN 2.9 g/dl (3.4-5.0); ALK PHOS 146 U/L (45-117); ANION GAP 9 MMOL/L (8-16); BILIRUBIN,TOTAL 0.2 mg/dL (0.2-1); BLOOD UREA NITROGEN 7 mg/dL (7-18); CALCIUM 8.8 mg/dL (8.5-10.1); CHLORIDE 98 mmol/L (98-107); CO2 27 mmol/L (21-32); CREATININE 0.4 mg/dL (0.55-1.3); GLUCOSE,RANDOM 84 mg/dL (74-106); POTASSIUM 4.3 mmol/L (3.5-5.1); SGOT/AST 66 U/L (15-37); SGPT/ALT 55 U/L (13-61); SODIUM 134 mmol/L (136-145); TOT PROT 6.6 g/dl (6.4-8.2)
[2018-07-01 03:35] LABS: EPI CELLS FEW /HPF (FEW); URINE BACTERIA MODERATE /hpf (NONE SEEN); URINE MUCUS RARE
[2018-07-01] MEDS ORDERED: CEPHALEXIN MONOHYDRATE 500 MG CAPSULE (UD) PO ONE (05:01)
[2018-07-01] MEDS ORDERED: CEPHALEXIN MONOHYDRATE 500 MG CAPSULE (UD) ONE (05:02)
== END 2018-07-01 05:27 | disposition home or self-care (01) ==
LOC: JER 00:41
PROC: 3E0337Z Introduction of Electrolytic and Water Balance Substance into Peripheral Vein, Percutaneous Approach (ICD-10-PCS; principal; 2018-07-01)
PROC: 3E033GC Introduction of Other Therapeutic Substance into Peripheral Vein, Percutaneous Approach (ICD-10-PCS; 2018-07-01)
PROC: 3E033GC Introduction of Other Therapeutic Substance into Peripheral Vein, Percutaneous Approach (ICD-10-PCS; 2018-07-01)
PROC: 3E033NZ Introduction of Analgesics, Hypnotics, Sedatives into Peripheral Vein, Percutaneous Approach (ICD-10-PCS; 2018-07-01)
PROC: 3E033GC Introduction of Other Therapeutic Substance into Peripheral Vein, Percutaneous Approach (ICD-10-PCS; 2018-07-01)
DX: O90.89 Other complications of the puerperium, not elsewhere classified (principal); O86.29 Other urinary tract infection following delivery
CPT/HCPCS: 36415; 74177-TC; 80053; 81003; 81015; 84702; 85025; 87077; 87086; 99283-25; J0131; J7030

== ENCOUNTER 2018-11-07 20:00 | Emergency (ER) | payer OTHER ==
[2018-11-07 20:25] VITALS: BP 110/57; PULSE 90; TEMP 97.9; BMI 23.3
[2018-11-07] MEDS ORDERED: KETOROLAC TROMETHAMINE 30 MG/1 ML VIAL IM ONE (20:52)
--- NOTE | 2018-11-07 20:57 | PDOC ---
History of Present Illness - General Chief Complaint: Sore Throat Stated Complaint: SORE THROAT/FEVER Time Seen by Provider: 11/07/18 20:43 History Source: Patient Exam Limitations: No Limitations - History of Present Illness Initial Comments: 11/07/18 20:53 28 year old female with no significant medical and surgical history of c- section and myomectomy presents with sorethroat x 2 days. Patient reports pain with swallowing radiating to left ear. States subjective fever and chills. Reports recurrent illness. 11/07/18 20:54 Timing/Duration: other (2 days ) Severity: moderate Modifying Factors: improves with: medication Associated Symptoms: reports: headaches. denies: cough, shortness of breath Aspirin Received prior to arrival: Yes: no aspirin today Asa Contraindications(Core Measure): No: Allergy Beta Kelli Contraindications(Core Measure): Yes: Not Prescribed Beta Kelli Given by EMS(Core Measure): No Beta Kelli Taken at Home(Core Measure): No Beta Kelli Not Indicated at this Time(Core Measure): No Past History - Travel Traveled outside of the country in the last 30 days: No Close contact w/someone who was outside of country & ill: No - Past Medical History Allergies/Adverse Reactions: Allergies Allergy/AdvReac Type Severity Reaction Status Date / Time No Known Allergies Allergy Verified 11/07/18 20:32 Home Medications: Ambulatory Orders Ibuprofen 600 mg PO TID #20 tablet 11/07/18 Penicillin V Potassium [Pen Vee K -] 500 mg PO TID #30 tablet 11/07/18 Asthma: No Cancer: No Cardiac Disorders: No COPD: No CHF: No Diabetes: No HTN: No Seizures: No Thyroid Disease: No - Suicide/Smoking/Psychosocial Hx Smoking History: Never smoked Have you smoked in the past 12 months: No Information on smoking cessation initiated: No Hx Alcohol Use: No Drug/Substance Use Hx: No Hx Substance Use Treatment: No Review of Systems - Review of Systems Able to Perform ROS?: Yes Is the patient limited Turkmen proficient: No Constitutional: Yes: Chills, Fever, Malaise HEENTM: Yes: Throat Pain Respiratory: No: Cough, Shortness of Breath Cardiac (ROS): No: Chest Pain, Irregular Heart Rate ABD/GI: No: Nausea, Poor Appetite, Indigestion : No: Pain, Lesions Musculoskeletal: No: Gout, Joint Pain Integumentary: No: Bruising, Dryness, Erythema Hematologic/Lymphatic: No: Blood Clots, Easy Bleeding *Physical Exam - Vital Signs Last Vital Signs Temp Pulse Resp BP Pulse Ox 97.9 F 90 20 110/57 L 97 11/07/18 20:23 11/07/18 20:23 11/07/18 20:23 11/07/18 20:23 11/07/18 20:23 - Physical Exam General Appearance: Yes: Nourished, Appropriately Dressed. No: Apparent Distress HEENT: positive: Pharyngeal Erythema, Tonsillar Exudate, Tonsillar Erythema, TM Bulging. negative: Nasal Congestion Neck: positive: Supple. negative: Lymphadenopathy (L) Respiratory/Chest: positive: Lungs Clear, Normal Breath Sounds Cardiovascular: positive: Regular Rhythm, Regular Rate Extremity: positive: Normal Capillary Refill Neurologic: positive: inspector outside production II-XII NML intact, Fully Oriented, Alert Medical Decision Making - Medical Decision Making 11/07/18 20:58 28 year old female with no significant medical and surgical history of c- section and myomectomy presents with sorethroat x 2 days. Plan: sore throat rapid strep analgesia 11/07/18 22:27 +strep on rapid strep rx: pen vk *DC/Admit/Observation/Transfer Diagnosis at time of Disposition: Sorethroat - Discharge Dispostion Disposition: HOME Condition at time of disposition: Good Decision to Admit order: No - Prescriptions Prescriptions: Ibuprofen 600 mg PO TID #20 tablet Penicillin V Potassium [Pen Vee K -] 500 mg PO TID #30 tablet - Referrals - Patient Instructions Printed Discharge Instructions: DI for Strep Throat Additional Instructions: Please gargle with warm salt water Do not share utensils Take ibuprofen for headaches and fever - Post Discharge Activity Forms/Work/School Notes: Back to Work
[2018-11-07] MEDS ORDERED: KETOROLAC TROMETHAMINE 30 MG/1 ML VIAL ONE (21:01)
== END 2018-11-07 21:32 | disposition home or self-care (01) ==
LOC: JERFT 20:00
PROC: 3E0233Z Introduction of Anti-inflammatory into Muscle, Percutaneous Approach (ICD-10-PCS; principal; 2018-11-07)
DX: J02.0 Streptococcal pharyngitis (principal); B95.0 Streptococcus, group A, as the cause of diseases classified elsewhere
CPT/HCPCS: 87880; 96372; 99281-25

== ENCOUNTER 2020-09-14 13:57 | Inpatient (IN) | payer OTHER ==
[2020-09-14] MEDS: ELECTROLYTE-148 SOLN 1,000 ML IV SCH ×2 (14:15→16:21)
[2020-09-14 15:23] VITALS: BMI 25.2
[2020-09-14] MEDS ORDERED: CITRIC ACID/SODIUM CITRATE 30 ML UNIT-DOSE CUP PO ONE (15:58)
[2020-09-14] MEDS ORDERED: ONDANSETRON 4 MG/2 ML VIAL ONE (17:09)
[2020-09-14] MEDS ORDERED: ceFAZolin SODIUM 1 GM VIAL ONE (17:09)
[2020-09-14] MEDS ORDERED: OXYTOCIN 10 UNITS/ML VIAL ONE (17:09)
[2020-09-14] MEDS ORDERED: DEXAMETHASONE SOD PHOSPHATE 4 MG/1 ML VIAL ONE (18:07)
[2020-09-14] MEDS ORDERED: WITCH HAZEL 50% (TUCKS) 40 PAD/JAR PAD TP PRN (18:23)
[2020-09-14] MEDS ORDERED: METHYLERGONOVINE MALEATE 0.2 MG/1 ML AMP IM PRN (18:23)
[2020-09-14] MEDS ORDERED: oxyCODONE HCL 5 MG TABLET PO PRN (18:23)
[2020-09-14] MEDS ORDERED: BENZOCAINE 28 GM HEMORRHOIDAL OINTMENT PR PRN (18:23)
[2020-09-14] MEDS ORDERED: BENZOCAINE 20% 57 GM BOTTLE TP PRN (18:23)
[2020-09-14] MEDS ORDERED: OXYTOCIN 20 UNITS in 0.9% NS 20 UNIT/1,000 ML INFUS.BAG IV SCH (18:30)
[2020-09-14] MEDS ORDERED: DEXTROSE 5%-LACTATED RINGERS 1,000 ML IV SCH (18:30)
[2020-09-14 19:13] LABS: CORD HCO3 24.4 mmHg (20-29); CORD HCO3 26.2 mmHg (20-29); CORD PCO2 46.5 mmHg (30-78); CORD PCO2 54.6 mmHg (30-78); CORD pH 7.299 (7.14-7.44); CORD pH 7.338 (7.14-7.44)
[2020-09-14] MEDS: IBUPROFEN 800 MG/8 ML IJ IVPB PRN (20:28)
[2020-09-15] MEDS: CEFAZOLIN 1 GM/D5W 1 GM/50 ML BAG IVPB SCH ×2 (02:07→09:40)
[2020-09-15] MEDS: diphenhydrAMINE HCL 25 MG CAPSULE (FP) PO PRN ×3 (05:01→21:51)
[2020-09-15 08:35] LABS: BASO % 0.2 % (0-2.0); EOS % 0.2 % (0-4.5); HEMOGLOBIN 9.9 GM/dL (10.7-15.3); LYMPH % 11.4 % (8-40); MCH 30.6 pg (25.7-33.7); MCHC 33.1 g/dl (32.0-36.0); MEAN CELL VOLUME 92.6 fl (80-96); MEAN PLT VOLUME 8.9 fl (7.5-11.1); MONO % 5.9 % (3.8-10.2); NEUT % 82.3 % (42.8-82.8); PLATELET COUNT 241 K/MM3 (134-434); RBC 3.24 M/mm3 (3.60-5.2); RDW 13.7 % (11.6-15.6)
[2020-09-15] MEDS: ENOXAPARIN NA (PORCINE) 40 MG/0.4 ML DISP.SYRIN SQ SCH (09:42)
[2020-09-15] MEDS: IBUPROFEN 800 MG/8 ML IJ IVPB PRN ×2 (11:44→17:18)
[2020-09-15 12:34] LABS: ANISOCYTOSIS 1+; MACROCYTOSIS 0; PLATELET ESTIMATE NORMAL
[2020-09-15] MEDS: ACETAMINOPHEN 325 MG TABLET (FP) PO PRN ×2 (16:14→23:46)
[2020-09-15] MEDS ORDERED: BISACODYL 10 MG SUPP.RECT PR PRN (18:23)
[2020-09-15] MEDS: SIMETHICONE 80 MG TAB.CHEW (FP) PO PRN (21:51)
[2020-09-15] MEDS: oxyCODONE HCL 5 MG TABLET PO PRN (23:45)
[2020-09-16] MEDS: ENOXAPARIN NA (PORCINE) 40 MG/0.4 ML DISP.SYRIN SQ SCH (08:59)
[2020-09-16] MEDS: SIMETHICONE 80 MG TAB.CHEW (FP) PO PRN ×4 (09:00→22:00)
[2020-09-16] MEDS: IBUPROFEN 600 MG TABLET (FP) PO PRN ×4 (09:00→22:01)
[2020-09-16] MEDS: ACETAMINOPHEN 325 MG TABLET (FP) PO PRN ×4 (09:01→21:59)
[2020-09-16] MEDS: oxyCODONE HCL 5 MG TABLET PO PRN (21:58)
[2020-09-16] MEDS ORDERED: SENNOSIDES/DOCUSATE COMBO (SENNA PLUS) TABLET (UD) PO PRN (22:00)
[2020-09-17 06:54] LABS: BASO % 0.4 % (0-2.0); EOS % 1.7 % (0-4.5); HEMATOCRIT 28.1 % (32.4-45.2); LYMPH % 25.1 % (8-40); MCH 32.3 pg (25.7-33.7); MCHC 35.7 g/dl (32.0-36.0); MEAN CELL VOLUME 90.4 fl (80-96); MEAN PLT VOLUME 8.2 fl (7.5-11.1); MONO % 8.4 % (3.8-10.2); NEUT % 64.4 % (42.8-82.8); PLATELET COUNT 257 K/MM3 (134-434); RBC 3.11 M/mm3 (3.60-5.2); RDW 12.9 % (11.6-15.6); WHITE BLOOD COUNT 10.6 K/mm3 (4.0-10.0)
[2020-09-17] MEDS: ACETAMINOPHEN 325 MG TABLET (FP) PO PRN ×2 (08:16→12:48)
[2020-09-17] MEDS: SIMETHICONE 80 MG TAB.CHEW (FP) PO PRN ×2 (08:17→12:48)
[2020-09-17] MEDS: IBUPROFEN 600 MG TABLET (FP) PO PRN ×2 (08:17→12:49)
[2020-09-17] MEDS: ENOXAPARIN NA (PORCINE) 40 MG/0.4 ML DISP.SYRIN SQ SCH (09:11)
[2020-09-17 09:39] VITALS: BP 100/60; PULSE 75; TEMP 98.3
== END 2020-09-17 13:50 | disposition home or self-care (01) | DRG 540 ==
LOC: JLDR 13:57 → J3W 21:00
PROVIDERS: ADMIT Obstetrics & Gynecology; ATTEND Obstetrics & Gynecology
PROC: 10D00Z1 Extraction of Products of Conception, Low, Open Approach (ICD-10-PCS; principal; 2020-09-14)
DX: O34.211 Maternal care for low transverse scar from previous cesarean delivery (principal); O32.1XX0 Maternal care for breech presentation, not applicable or unspecified; Z3A.38 38 weeks gestation of pregnancy; Z37.0 Single live birth
CPT/HCPCS: 36415; 36600; 82803; 85025; 88307-TC

== ENCOUNTER 2022-08-24 16:38 | Emergency (ER) | payer BC ==
[2022-08-24 16:42] VITALS: BP 107/62; PULSE 80; RESP 17; TEMP 98.3; BMI 18.5
[2022-08-24 18:51] LABS: PH,URINE 5.5 (5.0-8.0); URINE APPEARANCE CLEAR; URINE BILIRUBIN NEGATIVE (NEGATIVE); URINE COLOR YELLOW; URINE GLUCOSE (UA) NEGATIVE (NEGATIVE); URINE KETONE NEGATIVE (NEGATIVE); URINE LEUK ESTERASE NEGATIVE (NEGATIVE); URINE NITRITE NEGATIVE (NEGATIVE); URINE PROTEIN NEGATIVE (NEGATIVE); URINE UROBILINOGEN 0.2 mg/dL (0.2-1.0)
[2022-08-24 18:54] LABS: HCG,QUALITATIVE URINE Negative
[2022-08-24] MEDS ORDERED: CYCLOBENZAPRINE HCL 10 MG TABLET (FP) PO ONE (18:54)
[2022-08-24] MEDS ORDERED: ACETAMINOPHEN 500 MG TABLET (FP) PO ONE (18:54)
[2022-08-24] MEDS ORDERED: KETOROLAC TROMETHAMINE 30 MG/1 ML VIAL IM ONE (18:54)
[2022-08-24] MEDS ORDERED: LIDOCAINE 5% TOPICAL PATCH TP ONE (18:54)
[2022-08-24] MEDS ORDERED: LIDOCAINE 5% TOPICAL PATCH ONE (18:56)
[2022-08-24] MEDS ORDERED: CYCLOBENZAPRINE HCL 10 MG TABLET (FP) ONE (18:56)
[2022-08-24] MEDS ORDERED: ACETAMINOPHEN 500 MG TABLET (FP) ONE (18:56)
[2022-08-24] MEDS ORDERED: KETOROLAC TROMETHAMINE 30 MG/1 ML VIAL ONE (18:56)
[2022-08-24] MEDS ORDERED: LIDOCAINE PATCH REMOVAL MC SCH (22:00)
== END 2022-08-24 20:27 | disposition home or self-care (01) ==
LOC: JERFT 16:38 → JER 16:38 → JERFT 20:27
PROC: 3E023GC Introduction of Other Therapeutic Substance into Muscle, Percutaneous Approach (ICD-10-PCS; principal; 2022-08-24)
DX: M54.50 Low back pain, unspecified (principal)
CPT/HCPCS: 72100-TC-FY; 81003; 84703; 87086; 87186; 99284-25